=== PATIENT | male | born 1980 | race African-American/Black ===

== ENCOUNTER 2018-06-09 19:05 | Emergency (ER) | payer SELFPAY ==
[2018-06-09 19:19] VITALS: BP 146/81
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
[2018-06-09] MEDS ORDERED: Azithromycin TAB* 250 MG PO ONE (20:04)
[2018-06-09] MEDS ORDERED: cefTRIAXone VIAL(*) 250 MG VIAL IM ONE (20:04)
[2018-06-09] MEDS ORDERED: Lidocaine 1%* 5 ML VIAL ONE (20:08)
[2018-06-09] MEDS ORDERED: Lidocaine 1%* 5 ML VIAL INJ ONE (20:14)
--- NOTE | 2018-06-11 15:47 | UC ---
- Progress Note Progress Note: call patient let him know all test results have came back negative--if symptoms continue patient should get rechecked Discharge - Sign-Out/Discharge Documenting (check all that apply): Post-Discharge Follow Up All imaging exams completed and their final reports reviewed: No Studies - Discharge Plan Condition: Good Disposition: HOME Prescriptions: Ciprofloxacin TAB* [Cipro 500 MG TAB*] 500 mg PO BID #10 tab Ciprofloxacin TAB* [Cipro 500 MG TAB*] 500 mg PO BID #10 tab Patient Education Materials: Nonspecific Urethritis in Men (ED), Urinary Tract Infection in Men (ED) Referrals: [facility] [place] [facility] REFERR[facility] [Outside] - 1 Day No Primary Care Phys,NOPCP [Primary Care Provider] - - Billing Disposition and Condition Condition: GOOD Disposition: Home
--- NOTE | 2018-06-13 13:41 | UC ---
- Progress Note Progress Note: 06/13/2018 GC/chlamydia RNA returned positive for Gonorrhea and negative for Chlamydia. Pt was Tx prophylactically w/ Rocephin IM inj at the visit. Please notified Pt of results and advised his partner need to be treated. After symptoms resolve Pt needs to returned or f.u w/ PCP to make sure Gonorrhea completely clear. Thank you Shell Cherry PA-C Discharge - Sign-Out/Discharge Documenting (check all that apply): Patient Departure - D/C home All imaging exams completed and their final reports reviewed: No Studies - Discharge Plan Condition: Good Disposition: HOME Prescriptions: Ciprofloxacin TAB* [Cipro 500 MG TAB*] 500 mg PO BID #10 tab Ciprofloxacin TAB* [Cipro 500 MG TAB*] 500 mg PO BID #10 tab Patient Education Materials: Nonspecific Urethritis in Men (ED), Urinary Tract Infection in Men (ED) Referrals: [facility] [place] [place] [facility] [Outside] - 1 Day No Primary Care Phys,NOPCP [Primary Care Provider] - - Billing Disposition and Condition Condition: GOOD Disposition: Home
== END 2018-06-09 21:07 | disposition home or self-care (01) ==
LOC: UCEAST 19:05
DX: N39.0 Urinary tract infection, site not specified (principal); N34.2 Other urethritis; I10 Essential (primary) hypertension; F17.200 Nicotine dependence, unspecified, uncomplicated; Z86.19 Personal history of other infectious and parasitic diseases
CPT/HCPCS: 36415; 81003; 86592; 86703; 87086; 87491; 87591; 87661; 96372; 99202; A9270-GY; G0463; J0696